=== PATIENT | female | born 2000 | race Two or more races ===

== ENCOUNTER 2024-10-09 20:35 | Emergency (ER) | payer SELFPAY ==
[2024-10-09] MEDS ORDERED: PRENTAB9 PO (21:05)
== END 2024-10-09 20:48 | disposition admitted as inpatient to this hospital (09) ==
LOC: M ED 20:35
DX: Z53.21 Procedure and treatment not carried out due to patient leaving prior to being seen by health care provider (principal)

== ENCOUNTER 2024-10-09 20:45 | Outpatient (CLI) ==
[~2024-10-09] VITALS: Ht 158.8 cm; Wt 75.0 kg
[2024-10-09 21:02] VITALS: BP 106/72
[2024-10-09] MEDS ORDERED: HOME MED LIST COMPLETE! XX SCH (21:05)
[2024-10-09] MEDS ORDERED: PRENTAB9 PO (21:05)
[2024-10-09 21:42] LABS: AMORPHOUS SEDIMENT SMALL (NEGATIVE); APPEARANCE, URINE CLOUDY (CLEAR); BACTERIA, URINE AUTO NEGATIVE (NEGATIVE); BILIRUBIN, URINE AUTO NEGATIVE (NEGATIVE); BLOOD, URINE BLOOD NEGATIVE (NEGATIVE); COLOR, URINE YELLOW (YELLOW); GLUCOSE, URINE (UA) AUTO NEGATIVE (NEGATIVE); KETONE, URINE AUTO NEGATIVE (NEGATIVE); LEUKOCYTE ESTERASE, URINE AUTO 2+ (NEGATIVE); NITRITE, URINE AUTO NEGATIVE (NEGATIVE); PROTEIN, URINE AUTO NEGATIVE (NEGATIVE); RBC, URINE AUTO 1 /HPF (0-3); SPECIFIC GRAVITY URINE AUTO 1.008 (1.002-1.035); SQUAMOUS EPITHELIAL CELL UR AU 2 /HPF (0-6); UROBILINOGEN, URINE AUTO 0.2 mg/dL (0.0-2.0); WBC, URINE AUTO 9 /HPF (0-3)
== END 2024-10-09 23:44 | disposition home or self-care (01) ==
LOC: M LDO 20:45
PROVIDERS: ATTEND Advanced Practice Midwife
DX: O26.892 Other specified pregnancy related conditions, second trimester (principal); O09.212 Supervision of pregnancy with history of pre-term labor, second trimester; M54.50 Low back pain, unspecified; M54.32 Sciatica, left side; R10.30 Lower abdominal pain, unspecified; Z3A.24 24 weeks gestation of pregnancy
CPT/HCPCS: 59025; 81001; 87086; G0463

== ENCOUNTER 2025-01-16 19:07 | Inpatient (IN) | payer OTHER ==
[~2025-01-16] VITALS: Ht 157.5 cm; Wt 82.9 kg
[~2025-01-16 19:07] MED LIST: ACET-907 PO; PRENTAB9 PO; VALA500T5 PO
[2025-01-16 19:21] VITALS: BP 124/81
[2025-01-16 20:05] LABS: PLATELET COUNT, AUTOMATED 225 10^3/uL (150-450)
[2025-01-16] MEDS ORDERED: LIDOCAINE 1% MDV 20 ML VIAL INFIL PRN (20:45)
[2025-01-16] MEDS ORDERED: OXYTOCIN DRIP 30 UNITS in IV 1 EA IV PRN (20:45)
[2025-01-16 20:50] LABS: HIV 1&2 SCREEN NEGATIVE (NEGATIVE)
[2025-01-16 21:05] VITALS: BP 122/74
[2025-01-16] MEDS: miSOPROStol 50 MCG 1/2 TABLET SL SCH (21:05)
[2025-01-16] MEDS ORDERED: HOME MED LIST COMPLETE! XX SCH (21:30)
[2025-01-16 22:09] VITALS: BP 109/60
[2025-01-16 23:30] VITALS: BP 98/55
[2025-01-17] VITALS (51 sets, daily range): BP systolic 85–141; BP diastolic 46–87; O2SAT 97
[2025-01-17] MEDS: PROMETHAZINE 25MG/ML 1ML VIAL IV ONE (05:41)
[2025-01-17] MEDS: BUTORPHANOL 2 MG/ML 1 ML VIAL IV ONE (05:41)
[2025-01-17] MEDS ORDERED: EPIDURAL/PCA KEYS XX PRN (10:00)
[2025-01-17] MEDS ORDERED: NALOXONE INJ 0.4MG/1ML VIAL IV PRN (10:00)
[2025-01-17] MEDS ORDERED: ONDANSETRON 4MG 2ML VIAL IV PRN (10:00)
[2025-01-17] MEDS ORDERED: diphenhydrAMINE 50 MG/ML VIAL IV PRN (10:00)
[2025-01-17] MEDS ORDERED: FENTANYL 2 MCG/ML ROPIVACAINE 0.2% IN 0.9% NACL 100 ML IVBAG As Ordered ONE (10:00)
[2025-01-17] MEDS: FENTANYL/ROPIVACAINE/NACL BAG 100 ML EPIDURAL SCH (10:16)
[2025-01-17] MEDS: LR 500 ML IV PRN (10:49)
[2025-01-17] MEDS: OXYTOCIN DRIP 30 UNITS in IV 1 EA IV SCH (11:27)
[2025-01-17] MEDS: LR 1,000 ML IV SCH (11:28)
[2025-01-17] MEDS: PENICILLIN G POTASSIUM 5 MU IV 5 MU in DEXTROSE 5% (D5W) MINI-BAG PLU 100 ML IV STA (14:59)
[2025-01-17] MEDS: ACETAMINOPHEN 500 MG TAB PO ONE (18:47)
[2025-01-17] MEDS: PEN G POT 3,000,000 UNIT/50 ML 3,000,000 UNIT in IV 1 EA IV SCH (19:00)
[2025-01-17] MEDS: AMPICILLIN SOD/SULBACTAM SOD 3 GM in DEXTROSE 5% (D5W) MINI-BAG PLU 100 ML IV ONE (19:12)
[2025-01-17 19:36] LABS: CORD GAS ABE A -7.6; CORD GAS HCO3 A 18.8 MMOL/L; CORD GAS O2 SAT A 49.1 %; CORD GAS PCO2 A 41.7 mmHg; CORD GAS PH A 7.273 UNITS; CORD GAS PO2 A 23.7 mmHg; CORD GAS SBC A 17.3 MMOL/L; CORD GAS TCO2 A 20.1 MMOL/L
[2025-01-17 19:39] LABS: CORD GAS ABE V -4.9; CORD GAS HCO3 V 19.7 MMOL/L; CORD GAS O2 SAT V 56.9 %; CORD GAS PCO2 V 35.3 mmHg; CORD GAS PH V 7.364 UNITS; CORD GAS PO2 V 23.5 mmHg; CORD GAS SBC V 19.5 MMOL/L; CORD GAS TCO2 V 20.8 MMOL/L
[2025-01-17] MEDS: TRANEXAMIC ACID INJection 1,000 MG in NS 100 ML IV PRN (19:40)
[2025-01-17] MEDS: METHYLERGONOVINE MALEATE 0.2 MG/ML 1 ML VIAL IM ONE (19:50)
[2025-01-17] MEDS ORDERED: METHYLERGONOVINE MALEATE 0.2 MG TAB PO PRN (20:00)
[2025-01-17] MEDS ORDERED: CALCIUM CARBONATE 500 MG CHEW U/D PO PRN (20:00)
[2025-01-17] MEDS ORDERED: RHOGAM 300MCG (1500IU) INJ IM SCH (20:00)
[2025-01-17] MEDS ORDERED: ACETAMINOPHEN 325 MG TAB PO PRN (20:00)
[2025-01-17] MEDS: ONDANSETRON 4MG 2ML VIAL IV ONE (20:20)
[2025-01-17] MEDS: IBUPROFEN 800 MG TAB PO PRN (23:17)
[2025-01-18 05:43] VITALS: BP 103/52; O2SAT 98
[2025-01-18] MEDS: DIBUCAINE 1% OINTMENT 30 GM TOP PRN (08:16)
[2025-01-18] MEDS: PRENATAL VITAMINS CHEWABLE TABLET PO SCH (08:16)
[2025-01-18] MEDS: DOCUSATE SODIUM 100 MG CAPSULE PO PRN (08:17)
[2025-01-18] MEDS: IBUPROFEN 600 MG TAB PO PRN (08:18)
[2025-01-18] MEDS: ANUSOL HC CREAM 30 GM TOP PRN (20:11)
[2025-01-18 20:28] VITALS: BP 120/59; O2SAT 97
[2025-01-19 06:15] VITALS: BP 91/55; O2SAT 97
[2025-01-19] MEDS: MEASLES,MUMPS,RUBELLA VACCINE INJ (MMR-II) SC.IMMUN ONE (16:49)
[2025-01-19] MEDS: ACETAMINOPHEN 500 MG TAB PO PRN (16:50)
== END 2025-01-19 17:00 | disposition home or self-care (01) | DRG 807 ==
LOC: M LDI 19:07 → M OBS 01-17 21:35
PROVIDERS: ADMIT Specialist; ATTEND Advanced Practice Midwife
PROC: 3E0P7GC Introduction of Other Therapeutic Substance into Female Reproductive, Via Natural or Artificial Opening (ICD-10-PCS; 2025-01-16)
PROC: 10E0XZZ Delivery of Products of Conception, External Approach (ICD-10-PCS; principal; 2025-01-17)
PROC: 0KQM0ZZ Repair Perineum Muscle, Open Approach (ICD-10-PCS; 2025-01-17)
PROC: 10907ZC Drainage of Amniotic Fluid, Therapeutic from Products of Conception, Via Natural or Artificial Opening (ICD-10-PCS; 2025-01-17)
DX: O41.1230 Chorioamnionitis, third trimester, not applicable or unspecified (principal); Z37.0 Single live birth; Z3A.39 39 weeks gestation of pregnancy; O99.824 Streptococcus B carrier state complicating childbirth; O77.0 Labor and delivery complicated by meconium in amniotic fluid; O70.1 Second degree perineal laceration during delivery

== ENCOUNTER 2025-02-25 11:44 | Day surgery (SDC) | payer OTHER ==
[~2025-02-25] VITALS: Ht 157.5 cm; Wt 68.2 kg
[2025-02-25 13:16] LABS: BASO # 0.1 10^3/uL (0.0-0.2); BASO % 0.5 % (0.0-1.0); EOS # 0.7 10^3/uL (0.0-0.5); EOS % 6.0 % (0.0-3.0); LYMPH # 2.1 10^3/uL (1.5-5.0); LYMPH % 17.9 % (24.0-44.0); MONO # 0.4 10^3/uL (0.0-0.8); MONO % 3.1 % (2.0-8.0); NEUTROPHILS # 8.4 10^3/uL (1.5-8.5); NEUTROPHILS % 72.2 % (36.0-66.0); PLATELET COUNT, AUTOMATED 209 10^3/uL (150-450)
[2025-02-25 13:17] LABS: KETONE, URINE AUTO RFX TRACE mg/dL (NEGATIVE); NITRITE, URINE AUTO RFX NEGATIVE (NEGATIVE); RBC, URINE AUTO RFX 1 /HPF (0-3); SQUAM EPITHELIAL CELL UR AURFX 1 /HPF (0-6); WBC, URINE AUTO RFX 2 /HPF (0-3)
[2025-02-25 13:31] LABS: LEUKOCYTE ESTERASE UR AUTO RFX TRACE (NEGATIVE)
[2025-02-25 13:35] LABS: ALT/SGPT 21 U/L (7.0-40); AST/SGOT 23 U/L (<34); CALCIUM LEVEL 9.4 MG/DL (8.5-10.1); CARBON DIOXIDE LEVEL 26 MMOL/L (20-31); CHLORIDE LEVEL 108 MMOL/L (98-107); CREATININE FOR GFR 0.69 MG/DL (0.55-1.30); GLOMERULAR FILTRATION RATE > 90.0 (>60); POTASSIUM SERUM 4.3 MMOL/L (3.5-5.1); SODIUM LEVEL 144 MMOL/L (136-145)
[2025-02-25 14:53] LABS: HCG, SERUM QUALITATIVE NEGATIVE (NEGATIVE)
[2025-02-25] MEDS: MORPHINE 4 MG/ML 1 ML VIAL IV PRN (14:57)
[2025-02-25] MEDS: KETOROLAC 30 MG/ML 1 ML VIAL IV ONE (14:57)
[2025-02-25] MEDS ORDERED: HOME MED LIST COMPLETE! XX SCH (17:45)
[2025-02-25] MEDS: PIPERACILLIN/TAZOBACTAM SOD 4.5 GM in DEXTROSE 5% (D5W) ADV/MINI-BAG 50 ML IV ONE (18:12)
[2025-02-25] MEDS ORDERED: LR 1,000 ML IV SCH (18:15)
[2025-02-25] MEDS ORDERED: ONDANSETRON 4MG 2ML VIAL As Ordered ONE (18:29)
[2025-02-25] MEDS ORDERED: ROCURONIUM BROMIDE 50MG/5ML VIAL As Ordered ONE (18:29)
[2025-02-25] MEDS ORDERED: LIDOCAINE 1% MDV 20 ML VIAL As Ordered ONE (18:30)
[2025-02-25] MEDS ORDERED: dexAMETHasone 4 MG/ML 1 ML VIAL As Ordered ONE (18:30)
[2025-02-25] MEDS ORDERED: SUGAMMADEX SODIUM 200 MG/2 ML VIAL As Ordered ONE (18:30)
[2025-02-25] MEDS ORDERED: LIDOCAINE 2% 100 MG/5 ML SDV (FOR ANES.) As Ordered ONE (18:32)
[2025-02-25] MEDS ORDERED: MIDAZOLAM INJ 2 MG/2 ML VIAL As Ordered ONE (18:33)
[2025-02-25] MEDS ORDERED: ONDANSETRON 4MG 2ML VIAL IV PRN (18:45)
[2025-02-25] MEDS ORDERED: HYDROMORPHONE HCL 0.5 MG/0.5 ML SYRINGE IV PRN (18:45)
[2025-02-25] MEDS ORDERED: ACETAMINOPHEN 1000MG/100ML IV BAG As Ordered ONE (19:56)
[2025-02-25] MEDS ORDERED: KETOROLAC 30 MG/ML 1 ML VIAL As Ordered ONE (19:59)
[2025-02-25] MEDS ORDERED: PHENYLephrine 500MCG 5ML (100MCG/ML) SYRINGE As Ordered ONE (20:13)
[2025-02-25] MEDS ORDERED: OXYC1TAB23 PO (20:25)
[2025-02-25] MEDS ORDERED: ONDA-282 PO (20:27)
[2025-02-25 20:55] VITALS: TEMP 97.6
[2025-02-25 21:10] VITALS: BP 109/54; O2SAT 98
[2025-02-25] MEDS: ONDANSETRON 4MG 2ML VIAL IV PRN (21:25)
[2025-02-26] MEDS ORDERED: PIPERACILLIN/TAZOBACTAM SOD 3.375 GM in DEXTROSE 5% (D5W) ADV/MINI-BAG 50 ML IV SCH
== END 2025-02-26 07:32 | disposition home or self-care (01) ==
LOC: M ED 11:44 → M SDC 18:14
PROVIDERS: ATTEND Surgery
DX: K35.30 Acute appendicitis with localized peritonitis, without perforation or gangrene (principal)
CPT/HCPCS: 44970; 74176; 76830; 76856; 80048; 80076; 81001; 83690; 84703; 85025; 87086; 88304; 93976; 99284; J0131; J0665; J1100; J1885; J2250; J2371; J2405; J2543; J3010

== ENCOUNTER 2025-02-28 18:03 | Emergency (ER) | payer OTHER ==
[~2025-02-28] VITALS: Ht 157.5 cm; Wt 67.5 kg
[~2025-02-28 18:03] MED LIST changes: +ONDA-282 PO; +OXYC1TAB23 PO
[2025-02-28 19:32] LABS: BASO # 0.0 10^3/uL (0.0-0.2); BASO % 0.3 % (0.0-1.0); EOS # 0.4 10^3/uL (0.0-0.5); EOS % 3.6 % (0.0-3.0); LYMPH # 1.5 10^3/uL (1.5-5.0); LYMPH % 14.7 % (24.0-44.0); MONO # 0.5 10^3/uL (0.0-0.8); MONO % 4.5 % (2.0-8.0); NEUTROPHILS # 7.7 10^3/uL (1.5-8.5); NEUTROPHILS % 76.5 % (36.0-66.0); PLATELET COUNT, AUTOMATED 225 10^3/uL (150-450)
[2025-02-28 19:38] LABS: ERYTHROCYTE SEDIMENTATION RATE 22 mm/hr (0-20)
[2025-02-28 19:56] LABS: C REACTIVE PROTEIN QUANTITATIV 6.42 MG/DL (<1.0); CALCIUM LEVEL 9.1 MG/DL (8.5-10.1); CARBON DIOXIDE LEVEL 27 MMOL/L (20-31); CHLORIDE LEVEL 107 MMOL/L (98-107); CREATININE FOR GFR 0.63 MG/DL (0.55-1.30); GLOMERULAR FILTRATION RATE > 90.0 (>60); POTASSIUM SERUM 4.2 MMOL/L (3.5-5.1); SODIUM LEVEL 144 MMOL/L (136-145)
[2025-02-28] MEDS ORDERED: ISOVUE-370 76% 100 ML VIAL As Ordered ONE (20:14)
[2025-02-28 20:15] LABS: INR 1.16
[2025-02-28 20:25] LABS: CK-MB VALUE MASS < 1.0 NG/ML (<3.6)
[2025-02-28 20:26] LABS: CPK CREATINE PHOSPHOKINASE 94 U/L (34-145)
[2025-02-28 22:04] VITALS: BP 111/68; TEMP 98.6; O2SAT 98
== END 2025-02-28 22:17 | disposition home or self-care (01) ==
LOC: M ED 18:03
DX: R10.9 Unspecified abdominal pain (principal); N28.1 Cyst of kidney, acquired; K42.9 Umbilical hernia without obstruction or gangrene; F32.A Depression, unspecified; F41.9 Anxiety disorder, unspecified; Z98.890 Other specified postprocedural states; Z79.83 Long term (current) use of bisphosphonates; Z79.899 Other long term (current) drug therapy
CPT/HCPCS: 36415; 71275; 74177; 80048; 82550; 82553; 83605; 84145; 84484; 85025; 85610; 85652; 85730; 86140; 93005; 99284; Q9967